=== PATIENT | male | born 1995 | race African-American/Black ===

== ENCOUNTER 2022-03-19 11:06 | Emergency (ER) | payer MEDICAID, OTHER ==
[~2022-03-19] VITALS: Ht 170.2 cm; Wt 72.6 kg
[2022-03-19 11:42] VITALS: BP 127/72
[2022-03-19] MEDS ORDERED: IBUP800T27 PO (13:16)
== END 2022-03-19 13:25 | disposition home or self-care (01) ==
LOC: ER 11:06
DX: S83.92XA Sprain of unspecified site of left knee, initial encounter (principal); Y93.61 Activity, american tackle football; Y93.89 Activity, other specified; Y92.89 Other specified places as the place of occurrence of the external cause; Y99.8 Other external cause status
CPT/HCPCS: 73562

== ENCOUNTER 2024-02-17 04:58 | Emergency (ER) | payer MEDICAID, OTHER ==
[~2024-02-17] VITALS: Ht 170.2 cm; Wt 75.0 kg
[~2024-02-17 04:58] MED LIST: IBUP-1456 PO
[2024-02-17 07:14] LABS: Basophils # (auto) 0 10 ^3/uL (0-0.2); Basophils % (auto) 0.2 % (0.0-2.0); Eosinophils # (auto) 0 10 ^3/uL (0-0.8); Hematocrit 47.2 % (41.0-53.0); Hemoglobin 15.5 g/dL (13.5-17.5); Lymphocytes # (auto) 0.3 10 ^3/uL (0.4-5.4); Lymphocytes % (auto) 2.4 % (10.0-50.0); Mean Corpuscular Hemoglobin 25.8 pg (28.0-32.0); Mean Corpuscular Hgb Conc. 32.8 g/dL (32.0-36.0); Mean Corpuscular Volume 78.7 fL (80.0-100.0); Monocytes # (auto) 0.4 10 ^3/uL (0-1.3); Monocytes % (auto) 2.8 % (0.0-12.0); Neutrophils # (auto) 12.8 10 ^3/uL (1.6-8.6); Neutrophils % (auto) 94.6 % (37.0-80.0); Red Cell Distribution Width 14.2 % (11.8-14.3); White Blood Cell 13.6 10^3/uL (4.4-10.8)
[2024-02-17 07:20] LABS: Chloride 104 mmol/L (98-107); Potassium 4.9 mmol/L (3.5-5.1); Sodium 137 mmol/L (136-145)
[2024-02-17 07:21] LABS: Anion Gap 5 (5-15); Carbon Dioxide 28 mmol/L (20-30)
[2024-02-17 07:22] LABS: Calcium 10.1 mg/dL (8.5-10.1)
[2024-02-17 07:26] LABS: BUN/Creatinine Ratio 12.5 (10.0-20.0); Blood Urea Nitrogen 15 mg/dL (9-23); Glucose 123 mg/dL (74-106)
[2024-02-17 08:10] VITALS: BP 177/72; PULSE 105; RESP 16; TEMP 99.5; O2SAT 98
[2024-02-17] MEDS: PANTOPRAZOLE 40 MG/10 ML VIAL INJ IV ONE (08:12)
[2024-02-17] MEDS: PROCHLORPERAZINE EDISYLATE 5 MG/ML 2ML VIAL IV ONE (08:12)
[2024-02-17] MEDS: SODIUM CHLORIDE 0.9% 1,000 ML IV ONE (08:12)
[2024-02-17 09:19] LABS: Urine Bacteria None Seen /hpf (None Seen)
[2024-02-17 09:43] LABS: Urine Blood Negative /uL (Negative); Urine Clarity Clear (Clear); Urine Color Yellow (Yellow); Urine Hyaline Cast FEW /lpf (0 - 2); Urine Mucus FEW (None Seen); Urine Protein, UAD 1+ (Negative); Urine Specific Gravity 1.036 (1.001-1.035); Urine Urobilinogen 2 mg/dL (Negative); Urine WBC <1 /hpf (0 - 3)
[2024-02-17 09:54] LABS: Amphetamine Screen, Urine Neg (NEGATIVE); Barbiturate Scree,Urine Neg (NEGATIVE); Benzodiazephine Screen, Urine Neg (NEGATIVE); Cocaine Screen, Urine Neg (NEGATIVE); Opiate Scree,Urine Neg (NEGATIVE)
[2024-02-17 09:55] LABS: Cannabinoid Screen, Urine Neg (NEGATIVE); Phencyclidine Screen, Urine Neg (NEGATIVE)
== END 2024-02-17 09:55 | disposition left against medical advice (07) ==
LOC: EDBD 04:58 → ER 04:58
DX: R10.84 Generalized abdominal pain (principal); Z79.899 Other long term (current) drug therapy
CPT/HCPCS: 36415; 74176; 80048; 80307; 81001; 85025; 96361; 96374; 96375; 99285; C9113; J0780; J7030